=== PATIENT | male | born 1945 | race Caucasian/White ===

== ENCOUNTER → 2018-10-16 14:45 | Outpatient (CLI) | payer MEDICARE, OTHER, SELFPAY ==
[2018-10-16 15:45] LABS: PSA,Total - Annual Screen 3.19 ng/mL (0.00-4.00)
== END ==
PROVIDERS: Family Provider Family Medicine; PCP Family Medicine; Referring Provider Urology; Visit Provider Urology
DX: Z12.5 Encounter for screening for malignant neoplasm of prostate (principal)
CPT/HCPCS: 36415; 84153; G0103

== ENCOUNTER → 2019-01-09 14:03 | Outpatient (CLI) | payer MEDICARE, OTHER, SELFPAY ==
[2019-01-09 14:08] LABS: Bacteria 0 SEEN /hpf (None Seen); Mucous, Urine 0 SEEN /hpf (<or=2+); Red Blood Cells-Urine 0 SEEN /hpf (0-5); Squamous Epithelial Cells - UA 0 SEEN /hpf (0-5)
[2019-01-09 15:30] LABS: Color, Urine Yellow (Yellow); Glucose, Dipstick Normal (Normal); Ketone-Dipstick Negative (Negative); Leukocyte Esterase-Dipstick 25 /ul (Negative); Nitrite-Dipstick Negative (Negative); Occult Blood-Urine Negative /ul (Negative); Protein-Dipstick Negative (Negative); Specific Gravity, Urine 1.015 (1.002-1.030); Urine Bilirubin Dipstick Negative (Negative); Urine Clarity Clear (Clear); Urine Urobilinogen Normal (Normal); Urine pH 6.5 (5.0 - 8.0)
[2019-01-09 15:36] LABS: White Blood Cells 0-5 SEEN /hpf (0-5)
[2019-01-09 15:43] LABS: Hemoglobin A1c 6.1 % (4.2-6.3)
[2019-01-09 15:48] LABS: AST(SGOT) 18 U/L (15-37); Alanine Aminotransfer ALT/SGPT 35 U/L (16-61); Albumin, Serum 3.9 g/dL (3.2-5.0); Alkaline Phosphatase 101 U/L (45-117); Anion Gap 12 (5-15); BUN 24 mg/dL (7-18); BUN/Creat Ratio 20.9 RATIO (10-20); Chloride 101 mmol/L (98-107); Cholesterol 157 mg/dL (200); Creatinine, Serum 1.15 mg/dL (0.70-1.30); EST Glomerular Filtration Rate 66 mL/min (>60); Est Glom Filt Rate - Afr Amer 80 mL/min (>60); Globulin 3.8 g/dL (2.2-4.2); Glucose 97 mg/dL (74-106); High Density Lipoprotein 49 mg/dL; Potassium 3.9 mmol/L (3.5-5.1); Protein, Total 7.7 g/dL (6.4-8.2); Sodium Level 140 mmol/L (136-145); T4 Free Direct 1.12 ng/dL (0.76-1.46); Thyroid Stim Hormone (TSH) 0.59 uIU/mL (0.358-3.74); Triglycerides 135 mg/dL; Very Low Density Lipoprotein 27 mg/dL (5-40)
[2019-01-10 04:12] LABS: Absolute Lymphocyte Count 1.49 X10^3/ul (0.83-4.51); Absolute Neutrophil Count 5.7 X10^3/uL (2.0-7.7); Basophil# 0.02 X10^3/uL; Basophil% 0.3 % (0-1); Eosinophils% 1.3 % (0-5); Hematocrit 49.4 % (40-54); Hemoglobin 16.2 g/dl (13.0-16.5); Lymphocyte # 1.49 X10^3/ul (4.0); Lymphocyte % 18.7 % (19-41); Mean Corp Hgb Conc 32.8 g/gl (32-36); Mean Corpuscular Hgb 28.8 pg (27.0-32.0); Mean Corpuscular Volume 87.7 fL (80-94); Monocyte# 0.69 X10^3/uL; Monocyte% 8.7 % (0-10); Neutrophil # 5.65 X10^3/uL (2.7-7.7); Neutrophil % 70.7 % (47-70); POSITIVE COUNT NO; POSITIVE DIFFERENTIAL NO; POSITIVE MORPHOLOGY NO; Platelet Count 258 K/mm3 (150-450); RBC Distribution Width CV 13.5 % (11.6-14.6); RBC Distribution Width SD 43.1 fl (35.1-43.9); Red Blood Count 5.63 M/mm3 (4.6-6.2)
== END ==
PROVIDERS: Family Provider Family Medicine; PCP Family Medicine; Referring Provider Family Medicine; Visit Provider Family Medicine
DX: E04.1 Nontoxic single thyroid nodule (principal); I10 Essential (primary) hypertension; R73.02 Impaired glucose tolerance (oral); E78.5 Hyperlipidemia, unspecified
CPT/HCPCS: 36415; 80053; 80061; 81001; 83036; 84439; 84443; 85025

== ENCOUNTER → 2019-01-15 08:08 | Outpatient (CLI) | payer MEDICARE, OTHER, SELFPAY ==
--- NOTE | 2019-01-15 08:14 | US_ITS ---
STUDY: THYROID ULTRASOUND REASON FOR EXAM: Male, 73 years old. Nodule felt by physician TECHNIQUE: Ultrasound evaluation of the thyroid was performed with real-time and static baldwin-scale imaging. COMPARISON: None. FINDINGS: RIGHT LOBE: The right lobe of the thyroid gland measures 4.9 x 2.7 x 2.2 cm. There is a there are 2 solid nodules measuring 1.2 x 1.1 x 0.5 cm and 1.0 x 1.0 x 0.5 centimeters, and 2 solid/cystic nodules measuring 0.8 x 0.8 x 0.57 m and 1.1 x 1.4 x 0.9 cm. LEFT LOBE: The left lobe of the thyroid gland measures 6.5 x 3.0 x 3.6 cm. There is a homogeneous echotexture. Multiple solid/cystic nodules measuring between 1.9 and 2.3 cm. ISTHMUS: The isthmus measures 5 millimeters. There is a solid isthmus nodule measuring 1.4 x 1.0 x 0.8 cm. The regional lymph nodes are normal. US/Thyroid IMPRESSION: Enlarged left lobe of the thyroid gland. Bilateral solid and solid/cystic nodules. No previous studies are available for comparison, further evaluation with thyroid uptake study recommended to assess uptake characteristics. If the nodules should demonstrate suspicious uptake characteristics, biopsy would be recommended. If not, six-month follow-up would be recommended to assure stability of the nodules. Electronically Signed: Satya Mccormack MD at 17:25 EDT , Service support ,
== END ==
PROVIDERS: Family Provider Family Medicine; PCP Family Medicine; Referring Provider Family Medicine; Visit Provider Family Medicine
DX: E04.1 Nontoxic single thyroid nodule (principal)
CPT/HCPCS: 76536

== ENCOUNTER → 2019-02-07 11:33 | Outpatient (CLI) | payer MEDICARE, OTHER, SELFPAY ==
--- NOTE | 2019-02-07 08:15 | ASPS_PTH ---
PATIENT: SARAI VALE LOC: [facility] U#:[id number] AGE/SX: 80/M ROOM: RE02/07/[address]: Dr. Te Cope MD : 1945 BED: DIS: SPEC #: [id number] RECD: 02/07/19 11:24 STATUS: LADI JEFF #: [id number] MYLES: 02/07/19 08:[address]: Te Cope DEPT: CYTOLOGY RECD BY: Reed Gomez ENTERED: 02/07/19 12:55 SP TYPE: ASPIRATION OTHR DR: Dr. Ramiro Adams MD Tissues: A - Thyroid gland, NOS B - Thyroid gland, NOS C - Thyroid gland, NOS Procedures: Special Stain Group II Cytology Other HEADER OPERATION: Bilateral thyroid FNA PRE-OP DIAGNOSIS: Bilateral thyroid nodules TISSUE SUBMITTED: A - Right thyroid slides x6, B - Left inferior thyroid slides x4, C - Left superior thyroid slides x4 DIAGNOSIS CYTOLOGY A. Right thyroid nodule, FNA (smears): Consistent with benign follicular nodule with cystic changes. Adequate for evaluation. B. Left inferior thyroid nodule, FNA (smears): Consistent with benign colloid nodule with cystic changes. Adequate for evaluation. C. Left superior thyroid nodule, FNA (smears): Suggestive of benign cystic follicular nodule. The specimen is limited in evaluation due to lack of adequate number of follicular cells. SJ:pool 02/08/19 COMMENT Correlation with clinical, radiologic findings and appropriate follow up are necessary. CYTOLOGY STUDY Slides are reviewed. CYTOLOGY GROSS A - Received are six smears labeled with the patient's name and designated per the requisition as right thyroid. Submitted for staining. B - Received are four smears labeled with the patient's name and designated per the requisition as left inferior thyroid. Submitted for staining. C - Received are four smears labeled with the patient's name and designated per the requisition as left superior thyroid. Submitted for staining. / 02/07/19 TC:5 CPT: 61483 x3
[2019-02-07 08:46] VITALS: BMI 41.8
== END ==
PROVIDERS: Family Provider Family Medicine; PCP Family Medicine; Referring Provider Surgery; Visit Provider Surgery
DX: E04.1 Nontoxic single thyroid nodule (principal)
CPT/HCPCS: 88161; 88313

== ENCOUNTER → 2019-07-04 | Outpatient (CLI) | payer MEDICARE, OTHER, SELFPAY ==
[2019-02-07 08:46] VITALS: BMI 41.8
[2019-07-04 14:11] LABS: Absolute Lymphocyte Count 1.25 X10^3/uL (0.83-4.51); Basophil# 0.03 X10^3/uL; Basophil% 0.5 % (0-1); Eosinophil# 0.06 X10^3/uL; Hematocrit 49.3 % (40-54); Hemoglobin 16.3 g/dL (13.0-16.5); Lymphocyte # 1.25 X10^3/ul (4.0); Lymphocyte % 21.3 % (19-41); Mean Corp Hgb Conc 33.1 g/dL (32-36); Mean Corpuscular Hgb 28.3 pg (27.0-32.0); Mean Corpuscular Volume 85.6 fL (80-94); Mean Platelet Vol. 9.4 fl (6.2-12.0); Monocyte# 0.49 X10^3/uL; Monocyte% 8.3 % (0-10); NRBC Flagged by Analyzer 0 % (0-5); Neutrophil # 4.02 X10^3/uL (2.7-7.7); Neutrophil % 68.6 % (47-70); Platelet Count 245 K/mm3 (150-450); RBC Distribution Width CV 13.2 % (11.6-14.6); Red Blood Count 5.76 M/mm3 (4.6-6.2); White Blood Count 5.9 K/mm3 (4.4-11.0)
[2019-07-04 14:29] LABS: Vitamin B12 474 pg/mL (211-911); Vitamin D,25 Hydroxy 19.2 ng/mL (29.95-100.01)
[2019-07-04 14:30] LABS: Hemoglobin A1c 6.3 % (4.2-6.3)
[2019-07-04 14:37] LABS: ALB/GLOB Ratio 0.9 RATIO (0.9-2.4); AST(SGOT) 18 U/L (15-37); Alanine Aminotransfer ALT/SGPT 37 U/L (16-61); Albumin, Serum 3.7 g/dL (3.2-5.0); Alkaline Phosphatase 110 U/L (45-117); Anion Gap 6 (5-15); BUN 22 mg/dL (7-18); BUN/Creat Ratio 19.8 RATIO (10-20); Calcium,Total 9.3 mg/dL (8.5-10.1); Chloride 104 mmol/L (98-107); Cholesterol 175 mg/dL (200); Creatinine, Serum 1.11 mg/dL (0.70-1.30); EST Glomerular Filtration Rate 69 mL/min (>60); Est Glom Filt Rate - Afr Amer 83 mL/min (>60); Globulin 3.9 g/dL (2.2-4.2); Glucose 104 mg/dL (74-106); High Density Lipoprotein 52 mg/dL; Potassium 3.7 mmol/L (3.5-5.1); Protein, Total 7.6 g/dL (6.4-8.2); Sodium Level 140 mmol/L (136-145); Triglycerides 101 mg/dL; Very Low Density Lipoprotein 20 mg/dL (5-40)
[2019-07-06 20:07] LABS: Testosterone, Free 8.11 ng/dL (5.00-21.00)
[2019-07-07 09:28] LABS: Testosterone, % Free 2.94 % (1.50-4.20); Testosterone, Total 276 ng/dL (264-916)
== END | disposition home or self-care (01) ==
PROVIDERS: Family Provider Family Medicine; PCP Family Medicine; Referring Provider Family Medicine; Visit Provider Family Medicine
DX: E78.5 Hyperlipidemia, unspecified (principal); R53.83 Other fatigue; R73.02 Impaired glucose tolerance (oral); I10 Essential (primary) hypertension
CPT/HCPCS: 36415; 80053; 80061; 82306; 82607; 83036; 84402; 84403; 85025

== ENCOUNTER → 2019-10-11 11:01 | Outpatient (CLI) | payer MEDICARE, OTHER, SELFPAY ==
[2019-02-07 08:46] VITALS: BMI 41.8
[2019-10-11 12:19] LABS: Absolute Lymphocyte Count 1.29 X10^3/uL (0.83-4.51); Absolute Neutrophil Count 4.3 X10^3/uL (2.0-7.7); Basophil# 0.02 X10^3/uL; Basophil% 0.3 % (0-1); Eosinophil# 0.16 X10^3/uL; Eosinophils% 2.5 % (0-5); Hematocrit 49.8 % (40-54); Hemoglobin 16.2 g/dL (13.0-16.5); Lymphocyte # 1.29 X10^3/ul (4.0); Lymphocyte % 20.4 % (19-41); Mean Corp Hgb Conc 32.5 g/dL (32-36); Mean Corpuscular Hgb 28.4 pg (27.0-32.0); Mean Corpuscular Volume 87.2 fL (80-94); Mean Platelet Vol. 9.5 fl (6.2-12.0); Monocyte# 0.56 X10^3/uL; Monocyte% 8.8 % (0-10); NRBC Flagged by Analyzer 0 % (0-5); Neutrophil # 4.27 X10^3/uL (2.7-7.7); Neutrophil % 67.5 % (47-70); Platelet Count 256 K/mm3 (150-450); RBC Distribution Width CV 13.1 % (11.6-14.6); RBC Distribution Width SD 41.1 fl (35.1-43.9); Red Blood Count 5.71 M/mm3 (4.6-6.2); White Blood Count 6.3 K/mm3 (4.4-11.0)
[2019-10-11 12:39] LABS: Hemoglobin A1c 6.2 % (4.2-6.3)
[2019-10-11 12:41] LABS: ALB/GLOB Ratio 1.3 RATIO (0.9-2.4); AST(SGOT) 19 U/L (15-37); Alanine Aminotransfer ALT/SGPT 39 U/L (16-61); Albumin, Serum 3.9 g/dL (3.2-5.0); Alkaline Phosphatase 98 U/L (45-117); Anion Gap 6 (5-15); BUN 23 mg/dL (7-18); BUN/Creat Ratio 22.3 RATIO (10-20); Calcium,Total 9.1 mg/dL (8.5-10.1); Chloride 103 mmol/L (98-107); Cholesterol 172 mg/dL (200); Creatinine, Serum 1.03 mg/dL (0.70-1.30); EST Glomerular Filtration Rate 75 mL/min (>60); Est Glom Filt Rate - Afr Amer 90 mL/min (>60); Globulin 2.9 g/dL (2.2-4.2); Glucose 107 mg/dL (74-106); High Density Lipoprotein 49 mg/dL; Protein, Total 6.8 g/dL (6.4-8.2); Sodium Level 140 mmol/L (136-145); Triglycerides 122 mg/dL; Very Low Density Lipoprotein 24 mg/dL (5-40)
== END ==
PROVIDERS: Family Provider Family Medicine; PCP Family Medicine; Referring Provider Family Medicine; Visit Provider Family Medicine
DX: E78.5 Hyperlipidemia, unspecified (principal); E55.9 Vitamin D deficiency, unspecified; I10 Essential (primary) hypertension; R73.02 Impaired glucose tolerance (oral)
CPT/HCPCS: 36415; 80053; 80061; 82306; 83036; 85025

== ENCOUNTER → 2019-10-18 11:03 | Outpatient (CLI) | payer MEDICARE, OTHER, SELFPAY ==
[2019-02-07 08:46] VITALS: BMI 41.8
[2019-10-21 03:06] LABS: Beef <0.10 kU/L (Class 0); Corn <0.10 kU/L (Class 0); Egg, Whole <0.10 kU/L (Class 0); Milk (Cow) <0.10 kU/L (Class 0); Peanut <0.10 kU/L (Class 0); Pork <0.10 kU/L (Class 0); Soybean <0.10 kU/L (Class 0); Wheat <0.10 kU/L (Class 0)
[2019-10-21 11:34] LABS: Chocolate <0.10 kU/L (Class 0)
== END ==
PROVIDERS: Family Provider Family Medicine; PCP Family Medicine; Referring Provider Family Medicine; Visit Provider Family Medicine
DX: R19.7 Diarrhea, unspecified (principal)
CPT/HCPCS: 36415; 86003; 86005

== ENCOUNTER → 2020-01-01 | Outpatient (CLI) | payer MEDICARE, OTHER, SELFPAY ==
[2019-02-07 08:46] VITALS: BMI 41.8
--- NOTE | 2020-01-01 12:22 | RAD_ITS ---
STUDY: X-RAY CHEST REASON FOR EXAM: Male, 74 years old. cough, sob, bronchitis TECHNIQUE: PA and lateral views of the chest. COMPARISON: None. FINDINGS: The lungs are clear and expanded. There is no demonstrated pleural abnormality. Normal size heart. Normal mediastinum and edson. Normal visualized pulmonary arteries. There is atherosclerotic calcification of the aortic arch with tortuosity. There are diffuse degenerative changes of the visualized thoracic spine. Normal visualized ribs, clavicles, and shoulders. There is no demonstrated abnormality of the visualized soft tissue structures of the upper abdomen. RAD/Chest PA and Lateral IMPRESSION: No acute cardiopulmonary disease. Electronically Signed: Latisha Childs MD at 3:27 EST , Service support ,
== END | disposition home or self-care (01) ==
LOC: MTRAD 12:16
PROVIDERS: PCP Family Medicine; Referring Provider Family Medicine; Visit Provider Family Medicine
DX: J20.9 Acute bronchitis, unspecified (principal)
CPT/HCPCS: 71046

== ENCOUNTER → 2020-01-08 | Outpatient (CLI) | payer MEDICARE, OTHER, SELFPAY ==
[2019-02-07 08:46] VITALS: BMI 41.8
--- NOTE | 2020-01-08 09:13 | US_ITS ---
STUDY: THYROID ULTRASOUND REASON FOR EXAM: Male, 74 years old. F/U NODULES TECHNIQUE: Ultrasound evaluation of the thyroid was performed with real-time and static baldwin-scale imaging. COMPARISON: 01/15/2019 FINDINGS: RIGHT LOBE: The right lobe of the thyroid gland measures 4.9 x 2.3 x 2.4 cm. There is a heterogeneous echotexture. There is no change in the 11 mm solid and cystic nodule medially near the isthmus likely consistent with an adenoma. No change in a 9 mm solid and cystic nodule medially in the right lobe also likely consistent with an adenoma. LEFT LOBE: The left lobe of the thyroid gland measures 5.3 x 2.3 x 3.5 cm. There is a heterogeneous echotexture. No change in a 20 mm hypoechoic solid nodule with calcifications in the left lobe for which ultrasound-guided biopsy is recommended if never performed. Interval decrease in the size of the hypoechoic solid nodule laterally in the left lobe from 16 mm in diameter to 12 mm in diameter favoring a benign etiology. No change in a 20 mm colloid cyst posteriorly in the left lobe. ISTHMUS: The isthmus measures 7 mm thick. No change in a 10 mm hypoechoic solid nodule within the isthmus likely consistent with an adenoma.. The regional lymph nodes are normal. US/Thyroid IMPRESSION: Multinodular thyroid gland with mostly no change. Follow-up ultrasound is recommended in one year to document stability. Ultrasound-guided biopsy of the 20 mm dominant nodule in the left lobe with calcifications is recommended if never performed. Electronically Signed: Jhonnie Gabriel MD at 8:48 EST Tel , Service support ,
== END | disposition home or self-care (01) ==
LOC: US 09:13
PROVIDERS: PCP Family Medicine; Referring Provider Surgery; Visit Provider Surgery
DX: E04.2 Nontoxic multinodular goiter (principal)
CPT/HCPCS: 76536

== ENCOUNTER → 2020-03-19 | Outpatient (CLI) | payer MEDICARE, OTHER, SELFPAY ==
[2020-03-19 12:56] VITALS: BMI 41.8
--- NOTE | 2020-03-19 13:00 | ASPS_PTH ---
PATIENT: SARAI VALE LOC: [facility] U#:[id number] AGE/SX: 75/M ROOM: RE03/19/[address]: Dr. Jameel Cope III, MD : 1945 BED: DIS: 03/19/2020 SPEC #: [id number] RECD: 03/19/20 15:12 STATUS: LADI JEFF #: [id number] MYLES: 03/19/20 13:[address]: Te Cope DEPT: CYTOLOGY RECD BY: Jolanta Batres ENTERED: 03/20/20 08:33 SP TYPE: ASPIRATION OTHR DR: MD Dr. Ramiro Campbell III, MD Tissues: Thyroid gland, NOS Procedures: Special Stain Group II Cytology Other HEADER OPERATION: Left thyroid FNA PRE-OP DIAGNOSIS: Multiple thyroid nodules TISSUE SUBMITTED: Left thyroid slides x8 DIAGNOSIS CYTOLOGY Left thyroid nodule, FNA (smears): Consistent with benign colloid nodule. Adequate for evaluation. See comment. SJ:pool 03/21/20 COMMENT Correlation with clinical, radiologic findings and appropriate follow up are necessary. Please make reference to previous specimen ([id number]) right thyroid nodule, FNA with diagnosis of consistent with benign follicular nodule with cystic changes and left inferior thyroid nodule, FNA with diagnosis of consistent with benign colloid nodule with cystic changes and left superior thyroid nodule with diagnosis of suggestive of benign cystic follicular nodule. CYTOLOGY STUDY Slides are reviewed. CYTOLOGY GROSS Received are eight smears labeled with the patient's name and designated per the requisition as left thyroid. Submitted for staining. / pool 03/20/20 TC:5 CPT: 54277
== END | disposition home or self-care (01) ==
LOC: LABSPEC 15:27
PROVIDERS: PCP Family Medicine; Referring Provider Family Medicine; Visit Provider Family Medicine
DX: E04.2 Nontoxic multinodular goiter (principal)
CPT/HCPCS: 88161; 88313

== ENCOUNTER → 2020-04-15 | Outpatient (CLI) | payer MEDICARE, OTHER, SELFPAY ==
[2020-03-19 12:56] VITALS: BMI 41.8
[2020-04-15 12:41] LABS: Vitamin D,25 Hydroxy 30.4 ng/mL
[2020-04-15 12:49] LABS: ALB/GLOB Ratio 1.1 RATIO (0.9-2.4); AST(SGOT) 16 U/L (15-37); Alanine Aminotransfer ALT/SGPT 29 U/L (16-61); Albumin, Serum 3.6 g/dL (3.2-5.0); Alkaline Phosphatase 94 U/L (45-117); Anion Gap 6 (5-15); BUN 28 mg/dL (7-18); BUN/Creat Ratio 26.7 RATIO (10-20); Chloride 105 mmol/L (98-107); Cholesterol 159 mg/dL (200); Creatinine, Serum 1.05 mg/dL (0.70-1.30); EST Glomerular Filtration Rate 73 mL/min (>60); Est Glom Filt Rate - Afr Amer 88 mL/min (>60); Globulin 3.4 g/dL (2.2-4.2); Glucose 118 mg/dL (74-106); High Density Lipoprotein 47 mg/dL; Potassium 3.8 mmol/L (3.5-5.1); Sodium Level 139 mmol/L (136-145); Triglycerides 106 mg/dL; Very Low Density Lipoprotein 21 mg/dL (5-40)
[2020-04-15 13:21] LABS: Hemoglobin A1c 6.4 % (3.8-5.6)
[2020-04-17 12:07] LABS: Beef <0.10 kU/L (Class 0); Corn <0.10 kU/L (Class 0); Egg, Whole <0.10 kU/L (Class 0); Milk (Cow) <0.10 kU/L (Class 0); Peanut <0.10 kU/L (Class 0); Pork <0.10 kU/L (Class 0); Soybean <0.10 kU/L (Class 0); Wheat <0.10 kU/L (Class 0)
[2020-04-17 15:31] LABS: Chocolate <0.10 kU/L (Class 0)
== END | disposition home or self-care (01) ==
LOC: MFPLAB 10:07
PROVIDERS: PCP Family Medicine; Referring Provider Family Medicine; Visit Provider Family Medicine
DX: I10 Essential (primary) hypertension (principal); R19.7 Diarrhea, unspecified; E78.5 Hyperlipidemia, unspecified; R73.02 Impaired glucose tolerance (oral); E55.9 Vitamin D deficiency, unspecified
CPT/HCPCS: 36415; 80053; 80061; 82306; 83036; 86003; 86005

== ENCOUNTER → 2020-04-30 | Outpatient (CLI) | payer MEDICARE, OTHER, SELFPAY ==
[2020-03-19 12:56] VITALS: BMI 41.8
--- NOTE | 2020-04-30 11:41 | RAD_ITS ---
STUDY: X-RAY - RIGHT ANKLE REASON FOR EXAM: Male, 75 years old. Right ankle pain, several falls-most recent a few days ago TECHNIQUE: 3 view(s) of the ankle. COMPARISON: None. FINDINGS: The bones are demineralized. Normal visualized distal tibia. There is an old ununited fracture of the distal fibula. The ankle mortise is well-preserved. Normal medial and lateral malleoli. Normal tibiotalar articulation and ankle mortise. Normal visualized talus. Calcaneal spurs. The visualized subtalar, talonavicular, calcaneocuboid and tarsal articulations are normal. 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
== END | disposition home or self-care (01) ==
LOC: MTRAD 11:40
PROVIDERS: PCP Family Medicine; Referring Provider Family Medicine; Visit Provider Family Medicine
DX: S93.401A Sprain of unspecified ligament of right ankle, initial encounter (principal)
CPT/HCPCS: 73610

== ENCOUNTER → 2020-07-16 | Outpatient (CLI) | payer MEDICARE, OTHER, SELFPAY ==
[2020-03-19 12:56] VITALS: BMI 41.8
[2020-07-16 13:32] LABS: Bacteria 0 SEEN /hpf (None Seen); Mucous, Urine 0 SEEN /hpf (<or=2+); Red Blood Cells-Urine 0 SEEN /hpf (0-5); Squamous Epithelial Cells - UA 0 SEEN /hpf (0-5); White Blood Cells 0 SEEN /hpf (0-5)
[2020-07-16 15:20] LABS: Absolute Lymphocyte Count 1.16 X10^3/uL (0.83-4.51); Absolute Neutrophil Count 5.8 X10^3/uL (2.0-7.7); Basophil# 0.03 X10^3/uL; Basophil% 0.4 % (0-1); Eosinophil# 0.13 X10^3/uL; Eosinophils% 1.7 % (0-5); Hematocrit 47.7 % (40-54); Hemoglobin 15.2 g/dL (13.0-16.5); Lymphocyte # 1.16 X10^3/ul (4.0); Lymphocyte % 14.9 % (19-41); Mean Corp Hgb Conc 31.9 g/dL (32-36); Mean Corpuscular Hgb 27.7 pg (27.0-32.0); Mean Corpuscular Volume 86.9 fL (80-94); Mean Platelet Vol. 9.5 fl (6.2-12.0); Monocyte# 0.58 X10^3/uL; Monocyte% 7.5 % (0-10); NRBC Flagged by Analyzer 0 % (0-5); Neutrophil # 5.84 X10^3/uL (2.7-7.7); Platelet Count 302 K/mm3 (150-450); RBC Distribution Width CV 13.1 % (11.6-14.6); RBC Distribution Width SD 41.2 fl (35.1-43.9); Red Blood Count 5.49 M/mm3 (4.6-6.2); White Blood Count 7.8 K/mm3 (4.4-11.0)
[2020-07-16 15:20] LABS: Color, Urine Yellow (Yellow); Glucose, Dipstick Normal (Normal); Ketone-Dipstick Negative (Negative); Leukocyte Esterase-Dipstick 25 /ul (Negative); Nitrite-Dipstick Negative (Negative); Occult Blood-Urine Negative /ul (Negative); Protein-Dipstick 15 mg/dl (Negative); Urine Bilirubin Dipstick Negative (Negative); Urine Clarity Clear (Clear); Urine Urobilinogen Normal (Normal)
[2020-07-16 15:37] LABS: Vitamin D,25 Hydroxy 40.6 ng/mL
[2020-07-16 15:42] LABS: ALB/GLOB Ratio 0.9 RATIO (0.9-2.4); AST(SGOT) 20 U/L (15-37); Alanine Aminotransfer ALT/SGPT 39 U/L (16-61); Albumin, Serum 3.7 g/dL (3.2-5.0); Alkaline Phosphatase 112 U/L (45-117); Anion Gap 8 (5-15); BUN 20 mg/dL (7-18); Calcium,Total 9.1 mg/dL (8.5-10.1); Chloride 103 mmol/L (98-107); Cholesterol 178 mg/dL (200); Creatinine, Serum 1.05 mg/dL (0.70-1.30); EST Glomerular Filtration Rate 73 mL/min (>60); Est Glom Filt Rate - Afr Amer 88 mL/min (>60); Globulin 3.9 g/dL (2.2-4.2); Glucose 113 mg/dL (74-106); High Density Lipoprotein 49 mg/dL; PSA,Total - Annual Screen 2.92 ng/mL (0.00-4.00); Potassium 3.9 mmol/L (3.5-5.1); Protein, Total 7.6 g/dL (6.4-8.2); Sodium Level 140 mmol/L (136-145); Triglycerides 114 mg/dL; Very Low Density Lipoprotein 23 mg/dL (5-40)
[2020-07-16 15:45] LABS: Hemoglobin A1c 6.5 % (3.8-5.6)
== END | disposition home or self-care (01) ==
LOC: MTLAB 13:25
PROVIDERS: PCP Family Medicine; Referring Provider Family Medicine; Visit Provider Family Medicine
DX: I10 Essential (primary) hypertension (principal); E78.5 Hyperlipidemia, unspecified; R73.02 Impaired glucose tolerance (oral); E55.9 Vitamin D deficiency, unspecified; Z12.5 Encounter for screening for malignant neoplasm of prostate
CPT/HCPCS: 36415; 80053; 80061; 81001; 82306; 83036; 84153; 85025; G0103

== ENCOUNTER 2020-07-27 12:53 | Emergency (ER) | payer MEDICARE, OTHER, SELFPAY ==
[2020-03-19 12:56] VITALS: BMI 41.8
[2020-07-27 12:55] VITALS: BP 127/76; PULSE 97; RESP 18; TEMP 36.3; O2SAT 96; BMI 93.4
--- NOTE | 2020-07-27 13:14 | EKG12_ITS ---
Test Reason : GEN ILLNESS Blood Pressure : / mmHG Vent. Rate : 086 BPM Atrial Rate : 086 BPM P-R Int : 238 ms QRS Dur : 090 ms QT Int : 370 ms P-R-T Axes : 056 006 064 degrees QTc Int : 442 ms Sinus rhythm with 1st degree A-V block Inferior infarct , age undetermined Abnormal ECG Confirmed by RAMAN LÓPEZ, OFE ([id number]), editorial intern GENEVIEVE LOCKETT ([id number]) on 07/29/2020 1:24:00 PM Referred By: MICHAEL Confirmed By:OFE CAMARGO MD
--- NOTE | 2020-07-27 13:14 | ED.DCSUM_ITS ---
History of Present Illness Chief Complaint: General Illness Informant: Patient Narrative: 75-year-old male presenting with chief complaint of medication reaction to a Ozempic. He started this last week. This morning he had multiple symptoms including anxiety and a cough which lasted a long time. He then stated he felt constipated. His gave him a fleets enema and this resolved his constipation issue. He did not check his blood sugar at home. Patient states he is not had a reaction like this before. He states that his symptoms have since improved prior to arrival to the ER. He denies chest pain but states he felt like he was short of breath and coughing. He has had no fever, myalgias. - Past Medical History (1) Multiple thyroid nodules Status: Chronic Past Medical History - Allergies and Home Meds Allergies/Adverse Reactions: Allergies Iodinated Contrast Media [Iodinated Contrast- Oral and IV Dye] Allergy (Mild, Verified 07/27/20 12:55) Unknown Penicillins Allergy (Mild, Verified 07/27/20 12:55) Rash Primary Care Physician: Ramiro Adams MD [Primary Care Provider] - Past Medical History: - - Hyperlipidemia, hypertension Surgical History: noncontributory Lives: Spouse/ Significant Other Smoking Status: Never smoker Alcohol: None Drugs: None Review of Systems General: Denies: Chills, Fever, Sweats Eyes: Denies: Visual changes - bilaterally, Diplopia ENT: Denies: Rhinorrhea, Sore throat Cardiovascular: Reports: Palpitations, Heart racing. Denies: Chest pain Respiratory: Reports: Dyspnea, Cough Gastrointestinal: Reports: Abdominal pain, Nausea, Constipation. Denies: Vomit ing Musculoskeletal: Denies: Myalgias, Arthralgias Skin: Denies: Rash, Abscess Neurological: Denies: Headache, Weakness Psych: Reports: Anxiety. Denies: Suicidal thoughts, Suicidal ideations Physical Exam Vital Signs/Narrative: Vital Signs Temp Pulse Resp BP Pulse Ox 07/27/20 12:55 97.3 F L 97 18 127/76 H 96 Inital Vital Signs reviewed: Yes General: Well nourished, No Acute Distress Head: Normocephalic, Atraumatic Eyes: Perrl, EOMI. Negative for: Scleral icterus ENT: Moist mucous membranes, No rhinorrhea Cardiovascular: Regular rate, Regular rhythm Respiratory: No distress, CTA bilaterally Abdomen: Soft, Nontender, Nondistended Skin: Normal color, No rash. Negative for: Jaundice Neurological: Alert, Oriented x3 Psychological: Normal affect, Normal Mood Diagnostic/Tx/Re-eval Clinical Impression(s) from Imaging Studies Chest X-Ray 07/27/20 13:36 IMPRESSION: Stable, nonacute portable x-ray examination of the chest. Electronically Signed: Blair Villanueva MD (Brooks) at 13:49 EDT , Service support , Laboratory Data 07/27/20 07/27/20 13:30 13:30 WBC 9.2 RBC 5.38 Hgb 15.3 Hct 46.4 MCV 86.2 MCH 28.4 MCHC 33.0 RDW Std Deviation 40.8 RDW Coeff of Jennifer 13.2 Plt Count 285 MPV 9.5 Immature Gran % (Auto) 0.300 Neut % (Auto) 86.5 H Lymph % (Auto) 7.9 L Sevier % (Auto) 4.9 Eos % (Auto) 0.2 Baso % (Auto) 0.2 Absolute Neuts (auto) 8.0 H Absolute Lymphs (auto) 0.73 L Nucleated RBC % 0 Sodium 137 Potassium 4.1 Chloride 104 Carbon Dioxide 26.0 Anion Gap 7 BUN 27 H Creatinine 1.42 H Estim Creat Clear Calc 47.14 Est GFR (MDRD) Af Amer 62 Est GFR (MDRD) Non-Af 52 L BUN/Creatinine Ratio 19.0 Glucose 131 H Calcium 9.0 Total Bilirubin 0.40 AST 15 ALT 27 Alkaline Phosphatase 109 Troponin I < 0.015 Total Protein 7.3 Albumin 3.6 Globulin 3.7 Albumin/Globulin Ratio 1.0 Lipase 38 L - Rhythm Strip Rhythm Strip: Sinus Rhythm Rate: 86 - EKG Initial EKG Interpretation: Sinus Rhythm, No Acute Injury Pattern, AV Block - First Degree - Medical Decision Making Patient presents with concern for medication side effects. His vital signs are stable and he is afebrile. He is currently symptom-free. His constipation resolved after an enema. He is no longer having a cough or shortness of breath. I did check lab work which was fairly unremarkable with exception of some mild dehydration. Patient is counseled on how to hydrate at home I do not believe he needs IV fluids at this time. Chest x-ray is negative. EKG is sinus rhythm without signs of ischemia. Patient counseled to discontinue the use of his Ozempic until he can follow-up with his primary care provider regarding the symptoms. He is also to have his primary care physician recheck his kidney function on his next visit. Patient amenable to this plan and stable for discharge Impression: 1. Medication adverse effect 2. Dehydration ED Disposition - Plan for ED Patient: Disposition: Home or Assisted Living Instructions: ED Dehydration Adult, ED Drug React Adverse Other Referrals: Ramiro Adams MD [Primary Care Provider] -
--- NOTE | 2020-07-27 13:30 | ED.RN ---
NO OLD EKG
[2020-07-27 13:34] VITALS: BP 129/68; PULSE 85; RESP 20; O2SAT 16
--- NOTE | 2020-07-27 13:36 | RAD_ITS ---
STUDY: X-RAY CHEST REASON FOR EXAM: Male, 75 years old. sob TECHNIQUE: AP COMPARISON: 01/01/2020 FINDINGS: EKG leads project over the chest. The lungs are clear and expanded. There is no demonstrated pleural abnormality. Normal size heart. Normal mediastinum and edson. Normal visualized pulmonary arteries. Normal visualized aortic arch and descending thoracic aorta. No acute bony process. There is no demonstrated abnormality of the visualized soft tissue structures of the upper abdomen. RAD/Chest 1 View (Portable) IMPRESSION: Stable, nonacute portable x-ray examination of the chest. Electronically Signed: Blair Villanueva MD (Brooks) at 13:49 EDT , Service support ,
[2020-07-27 13:45] LABS: Absolute Lymphocyte Count 0.73 X10^3/uL (0.83-4.51); Basophil# 0.02 X10^3/uL; Basophil% 0.2 % (0-1); Eosinophil# 0.02 X10^3/uL; Eosinophils% 0.2 % (0-5); Hematocrit 46.4 % (40-54); Hemoglobin 15.3 g/dL (13.0-16.5); Lymphocyte # 0.73 X10^3/ul (4.0); Lymphocyte % 7.9 % (19-41); Mean Corpuscular Hgb 28.4 pg (27.0-32.0); Mean Corpuscular Volume 86.2 fL (80-94); Mean Platelet Vol. 9.5 fl (6.2-12.0); Monocyte# 0.45 X10^3/uL; Monocyte% 4.9 % (0-10); NRBC Flagged by Analyzer 0 % (0-5); Neutrophil # 7.97 X10^3/uL (2.7-7.7); Neutrophil % 86.5 % (47-70); Platelet Count 285 K/mm3 (150-450); RBC Distribution Width CV 13.2 % (11.6-14.6); RBC Distribution Width SD 40.8 fl (35.1-43.9); Red Blood Count 5.38 M/mm3 (4.6-6.2); White Blood Count 9.2 K/mm3 (4.4-11.0)
[2020-07-27 14:03] LABS: AST(SGOT) 15 U/L (15-37); Alanine Aminotransfer ALT/SGPT 27 U/L (16-61); Albumin, Serum 3.6 g/dL (3.2-5.0); Alkaline Phosphatase 109 U/L (45-117); Anion Gap 7 (5-15); BUN 27 mg/dL (7-18); Chloride 104 mmol/L (98-107); Creatinine, Serum 1.42 mg/dL (0.70-1.30); EST Glomerular Filtration Rate 52 mL/min (>60); Est Glom Filt Rate - Afr Amer 62 mL/min (>60); Estimated Creatinine Clearance 47.14 ml/min; Globulin 3.7 g/dL (2.2-4.2); Glucose 131 mg/dL (74-106); Lipase 38 U/L (73-393); Potassium 4.1 mmol/L (3.5-5.1); Protein, Total 7.3 g/dL (6.4-8.2); Sodium Level 137 mmol/L (136-145)
[2020-07-27 14:16] VITALS: BP 135/73; PULSE 85; RESP 20
== END 2020-07-27 14:33 | disposition home or self-care (01) ==
PROVIDERS: Emergency Provider Student in an Organized Health Care Education/Training Program; PCP Family Medicine
DX: E86.0 Dehydration (principal); F41.9 Anxiety disorder, unspecified; R05 Cough; T50.995A Adverse effect of other drugs, medicaments and biological substances, initial encounter; I10 Essential (primary) hypertension; E78.5 Hyperlipidemia, unspecified; Z79.899 Other long term (current) drug therapy
CPT/HCPCS: 71045; 80053; 83690; 84484; 85025; 93005; 99284; A4216

== ENCOUNTER → 2020-10-27 09:59 | Outpatient (CLI) | payer MEDICARE, OTHER, SELFPAY ==
[2020-10-27 12:31] LABS: Absolute Lymphocyte Count 1.39 X10^3/uL (0.83-4.51); Absolute Neutrophil Count 5.5 X10^3/uL (2.0-7.7); Basophil# 0.04 X10^3/uL; Basophil% 0.5 % (0-1); Eosinophil# 0.13 X10^3/uL; Eosinophils% 1.7 % (0-5); Hematocrit 50.4 % (40-54); Hemoglobin 16.9 g/dL (13.0-16.5); Lymphocyte # 1.39 X10^3/ul (4.0); Lymphocyte % 18.2 % (19-41); Mean Corp Hgb Conc 33.5 g/dL (32-36); Mean Corpuscular Hgb 29.2 pg (27.0-32.0); Mean Platelet Vol. 10.1 fl (6.2-12.0); Monocyte# 0.58 X10^3/uL; Monocyte% 7.6 % (0-10); NRBC Flagged by Analyzer 0 % (0-5); Neutrophil # 5.45 X10^3/uL (2.7-7.7); Neutrophil % 71.5 % (47-70); Platelet Count 266 K/mm3 (150-450); RBC Distribution Width CV 14.4 % (11.6-14.6); RBC Distribution Width SD 42.4 fl (35.1-43.9); Red Blood Count 5.79 M/mm3 (4.6-6.2); White Blood Count 7.6 K/mm3 (4.4-11.0)
[2020-10-27 12:54] LABS: Microalbumin,Random Urine 57.7 mg/L (NO RANGE EST.); Microalbumin:Creatinine Ratio 43.7 mg/g CRE (<30 mg/g CRE)
[2020-10-27 12:56] LABS: Vitamin D,25 Hydroxy 36.7 ng/mL
[2020-10-27 13:03] LABS: AST(SGOT) 20 U/L (15-37); Alanine Aminotransfer ALT/SGPT 42 U/L (16-61); Albumin, Serum 3.9 g/dL (3.2-5.0); Alkaline Phosphatase 123 U/L (45-117); Anion Gap 6 (5-15); BUN 21 mg/dL (7-18); BUN/Creat Ratio 19.4 RATIO (10-20); Calcium,Total 9.4 mg/dL (8.5-10.1); Chloride 102 mmol/L (98-107); Cholesterol 154 mg/dL (200); Creatinine, Serum 1.08 mg/dL (0.70-1.30); EST Glomerular Filtration Rate 71 mL/min (>60); Est Glom Filt Rate - Afr Amer 85 mL/min (>60); Glucose 112 mg/dL (74-106); High Density Lipoprotein 54 mg/dL; Potassium 3.7 mmol/L (3.5-5.1); Protein, Total 7.9 g/dL (6.4-8.2); Sodium Level 138 mmol/L (136-145); Triglycerides 95 mg/dL; Very Low Density Lipoprotein 19 mg/dL (5-40)
[2020-10-27 13:22] LABS: Hemoglobin A1c 6.2 % (3.8-5.6)
== END ==
PROVIDERS: PCP Family Medicine; Referring Provider Family Medicine; Visit Provider Family Medicine
DX: E11.9 Type 2 diabetes mellitus without complications (principal); E78.5 Hyperlipidemia, unspecified; E55.9 Vitamin D deficiency, unspecified; G47.33 Obstructive sleep apnea (adult) (pediatric)
CPT/HCPCS: 36415; 80053; 80061; 82043; 82306; 82570; 83036; 85025

== ENCOUNTER → 2021-01-14 05:46 | Outpatient (CLI) | payer MEDICARE, OTHER, SELFPAY ==
--- NOTE | 2021-01-15 14:37 | STRESSREP ---
Stress Test Report Date: 01/14/2021 Procedure: Exercise tolerance test/imaging study Indications: Chest pain Consent: Per the patient Procedure: The patient exercised on a Erik protocol for 3 minutes and 29 seconds achieving a peak heart rate of 127 bpm (88% predicted maximal heart rate) with a peak blood pressure 220/110 mmHg and a peak MET capacity of 5.1 METs. The baseline ECG demonstrated normal sinus rhythm. The peak exercise ECG demonstrated no significant ischemic changes. EKG during recovery revealed significant ischemic changes [There were no cardiac dysrhythmias pretest, during exercise, or recovery]. The functional capacity was considered normal for age. There was [no complaint of chest discomfort during exercise or recovery]. The examination was discontinued secondary to dyspnea. Impression: 1. Technically adequate (percent predicted maximal heart rate greater than 85%) exercise tolerance test 2. Stress test is negative for exercise-induced EKG changes of ischemia 3. The test test is negative for exercise-induced chest pain 4. Functional capacity is normal for age 5. Nuclear images pending Myocardial perfusion imaging study: Technique: The patient was injected with 14.1 mCi of technetium 99m Cardiolite and subsequently rest SPECT Cardiolite nuclear imaging was obtained in the horizontal long, vertical long, and short axis views. The patient exercised on a Erik protocol. Please see above for details. The patient was injected with 44.4 mCi of technetium 99m Cardiolite and subsequently stress SPECT Cardiolite nuclear imaging was obtained in the horizontal long, vertical long, and short axis views. A gated Cardiolite study at peak stress was obtained. Interpretation: Rest and stress SPECT Cardiolite nuclear imaging status post realignment, normalization, and attenuation correction, demonstrates normal myocardial radioisotope uptake after attenuation correction. Prior to attenuation correction there is mild decrease in the radioisotope uptake in the inferior wall suggestive of diaphragmatic attenuation artifact. The gated Cardiolite study demonstrates no significant regional wall motion abnormalities. The reported LVEF is 71%. Impression: 1. There is no evidence of significant ischemia or infarction. 2. The gated Cardiolite study reports an LVEF of 71%. This note was generated with [employer] software. It may contain incorrect words, spelling, and punctuation that were not noted in checking the note before signing.
== END ==
PROVIDERS: PCP Family Medicine; Referring Provider Family Medicine; Visit Provider Family Medicine
DX: R07.9 Chest pain, unspecified (principal)
CPT/HCPCS: 78452; 93017; A9500; A4216

== ENCOUNTER → 2021-08-12 10:06 | Outpatient (CLI) | payer MEDICARE, OTHER, SELFPAY ==
[2021-08-12 12:28] LABS: Absolute Neutrophil Count 4.3 X10^3/uL (2.0-7.7); Basophil# 0.03 X10^3/uL; Basophil% 0.5 % (0-1); Eosinophil# 0.14 X10^3/uL; Eosinophils% 2.4 % (0-5); Hematocrit 43.1 % (40-54); Hemoglobin 13.8 g/dL (13.0-16.5); Lymphocyte % 16.8 % (19-41); Mean Corpuscular Hgb 28.4 pg (27.0-32.0); Mean Corpuscular Volume 88.7 fL (80-94); Mean Platelet Vol. 9.6 fl (6.2-12.0); Monocyte# 0.48 X10^3/uL; Monocyte% 8.1 % (0-10); NRBC Flagged by Analyzer 0 % (0-5); Neutrophil # 4.25 X10^3/uL (2.7-7.7); Neutrophil % 71.5 % (47-70); Platelet Count 247 K/mm3 (150-450); RBC Distribution Width CV 13.9 % (11.6-14.6); RBC Distribution Width SD 44.9 fl (35.1-43.9); Red Blood Count 4.86 M/mm3 (4.6-6.2); White Blood Count 5.9 K/mm3 (4.4-11.0)
[2021-08-12 13:00] LABS: Vitamin D,25 Hydroxy 36.6 ng/mL
[2021-08-12 13:01] LABS: ALB/GLOB Ratio 0.8 RATIO (0.9-2.4); AST(SGOT) 14 U/L (15-37); Alanine Aminotransfer ALT/SGPT 26 U/L (16-61); Alkaline Phosphatase 90 U/L (45-117); Anion Gap 7 (5-15); BUN 24 mg/dL (7-18); BUN/Creat Ratio 24.1 RATIO (10-20); Calcium,Total 8.9 mg/dL (8.5-10.1); Chloride 104 mmol/L (98-107); Cholesterol 147 mg/dL (200); Creatinine, Serum 0.99 mg/dL (0.70-1.30); EST Glomerular Filtration Rate 77 mL/min (>60); Est Glom Filt Rate - Afr Amer 94 mL/min (>60); Globulin 3.7 g/dL (2.2-4.2); Glucose 144 mg/dL (74-106); High Density Lipoprotein 52 mg/dL; Potassium 3.9 mmol/L (3.5-5.1); Protein, Total 6.7 g/dL (6.4-8.2); Sodium Level 142 mmol/L (136-145); Thyroid Stim Hormone (TSH) 0.75 uIU/mL (0.358-3.74); Triglycerides 79 mg/dL; Very Low Density Lipoprotein 16 mg/dL (5-40)
[2021-08-12 13:14] LABS: Microalbumin,Random Urine 31.7 mg/L (NO RANGE EST.); Microalbumin:Creatinine Ratio 21.6 mg/g CRE (<30 mg/g CRE)
[2021-08-12 13:19] LABS: Hemoglobin A1c 6.7 % (3.8-5.6)
== END ==
PROVIDERS: PCP Family Medicine; Referring Provider Family Medicine; Visit Provider Family Medicine
DX: E11.9 Type 2 diabetes mellitus without complications (principal); E55.9 Vitamin D deficiency, unspecified
CPT/HCPCS: 36415; 80053; 80061; 82043; 82306; 82570; 83036; 84443; 85025

== ENCOUNTER 2021-08-16 10:20 | Emergency (ER) | payer MEDICARE, OTHER, SELFPAY ==
[2021-08-16 10:21] VITALS: BP 147/84; PULSE 65; RESP 15; TEMP 37.1; O2SAT 96; BMI 41.9
[2021-08-16 10:46] VITALS: BP 202/108; PULSE 79; RESP 20; O2SAT 96
--- NOTE | 2021-08-16 11:27 | CT_ITS ---
STUDY: CT BRAIN WITHOUT CONTRAST REASON FOR EXAM: Male, 76 years old. Headache RADIATION DOSAGE (If Supplied By Facility): CTDIvol = ( 44.99 ) mGy, DLP = ( 880.47 ) mGycm TECHNIQUE: Transaxial CT imaging of the brain was performed without administration of intravenous contrast material. Individualized dose optimization techniques were used for this CT. COMPARISON: No relevant priors. FINDINGS: Normal soft tissue structures. Normal calvarium. There is mild cerebral atrophy with widening of the extra-axial spaces and ventricular dilatation. There are areas of decreased attenuation within the white matter tracts of the supratentorial brain, consistent with microvascular disease changes. Normal basal ganglia and thalami. Normal brainstem. There is mild cerebellar atrophy. There is no intracranial hemorrhage. There are no findings of an acute ischemic infarction. Normal visualized paranasal sinuses. CT/Brain/Head without Contrast IMPRESSION: Chronic involutional changes of the brain. Small vessel ischemia. Electronically Signed: Janeth Dhaliwal MD at 13:17 EDT Tel , Service support ,
--- NOTE | 2021-08-16 11:27 | EKG12_ITS ---
Test Reason : Blood Pressure : / mmHG Vent. Rate : 065 BPM Atrial Rate : 065 BPM P-R Int : 212 ms QRS Dur : 090 ms QT Int : 422 ms P-R-T Axes : 027 022 057 degrees QTc Int : 438 ms Sinus rhythm with 1st degree A-V block Otherwise normal ECG Confirmed by RAMAN LÓPEZ, OFE ([id number]), medical editor CHANA SANDOVAL ([id number]) on 08/17/2021 1:01:52 PM Referred By: MICHAEL Confirmed By:OFE CAMARGO MD
--- NOTE | 2021-08-16 11:29 | EDS_ITS ---
HPI History of Present Illness Chief Complaint: General Illness Narrative Narrative: 76-year-old male presenting with elevated blood pressure. He states that he noted was elevated today. His blood pressure is 202/108 here in the ED. He complains of a headache without visual complaints. He is able to ambulate. He is mildly nauseous without vomiting. He does not describe it as acute onset headache. Patient does have history of hypertension and is on HCTZ 25 mg p.o. daily, losartan 100 mg p.o. daily in addition to that he is on propanolol for anxiety. His blood pressure has been good throughout the week. Patient recently hospitalized for COVID-19 about 22 days ago he was released and has been doing home PT. He notes that his blood pressure was good up until today. Patient does admit to some anxiety which she relates to an upcoming meeting which he believes will not go well. Patient has not had a fever or cough. He does admit to some mild chest pressure and states he has a syncope feeling. Patient denies any cardiac history. [facility] Medical History HTN (hypertension) Hyperlipidemia Multiple thyroid nodules Home Medications aspirin 81 mg tablet,delayed release 81 mg PO DAILY 01/22/19 [History Last Taken Unknown] atorvastatin 10 mg tablet 20 mg PO DAILY 01/22/19 [History Last Taken Unknown] hydrochlorothiazide 25 mg tablet 25 mg PO DAILY 01/22/19 [History Last Taken Unknown] losartan 100 mg tablet 100 mg PO DAILY 01/22/19 [History Last Taken Unknown] montelukast 10 mg PO DAILY 07/27/20 [History Last Taken Unknown] ropinirole 0.5 mg PO QHS 07/27/20 [History Last Taken Unknown] semaglutide 0.25 mg SQ QWEEK 07/27/20 [History Last Taken Unknown] sulfamethoxazole-trimethoprim 1 ea PO BID 07/27/20 [History Last Taken Unknown] Allergy/AdvReac Type Severity Reaction Status Date / Time Iodinated Contrast Media Allergy Mild Unknown Verified 08/16/21 10:21 [Iodinated Contrast- Oral and IV Dye] Penicillins Allergy Mild Rash Verified 08/16/21 10:21 Family History Mother Thyroid disorder Surgical History S/P knee surgery s/p prostate surgery S/P tonsillectomy Status post biopsy of thyroid gland (~01/2020) Social History Smoking Status: Never smoker alcohol intake: current alcohol intake frequency: holidays/special occasions only ROS ROS ED Constitutional Constitutional ED: Denies chills or fever(s) Eyes Eyes: Denies blurry vision or diplopia ENT ENT ED: Denies rhinorrhea or sore throat Cardiovascular Cardiovascular: Reports chest pain; Denies racing heartbeat Respiratory/Chest Respiratory/Chest: Denies cough or dyspnea Gastrointestinal Gastrointestinal: Reports nausea; Denies abdominal pain, diarrhea or vomiting Genitourinary Genitourinary ED: Denies dysuria or hematuria Musculoskeletal Musculoskeletal: Denies arthralgias or myalgias Integumentary Denies Abrasions or rash Neurologic Neurologic: Reports headache(s); Denies paresthesias or weakness EXAM Physical Exam Const Vital Signs: 08/16/21 10:21 08/16/21 10:46 08/16/21 11:52 Temperature 98.7 F Temperature Source Temporal Pulse Rate 65 79 Respiratory Rate 15 20 H Respiratory Effort Normal Respiratory Pattern Normal Blood Pressure 147/84 H 202/108 H Blood Pressure Mean 105 139 Pulse Ox 96 96 Oxygen Delivery Method Room Air Room Air Room Air 08/16/21 12:18 08/16/21 13:20 Temperature Temperature Source Pulse Rate 71 72 Respiratory Rate 16 Respiratory Effort Respiratory Pattern Blood Pressure 174/79 H 164/75 H Blood Pressure Mean 110 104 Pulse Ox 96 97 Oxygen Delivery Method Room Air Room Air Positive obese General Appearance ED: NAD; Negative for pallor Nutritional Appearance: obese HEENT Reports moist mucous membranes Negative for trauma Eyes PERRL and EOMs intact bilaterally Resp normal respiratory effort and clear to auscultation bilaterally Cardio regular rate and regular rhythm GI normal to inspection, nondistended, normoactive bowel sounds Neuro oriented x3, CN's II-XII intact bilaterally and no sensory deficits noted Sensorium / Orientation: alert Motor Exam: strength 5/5 throughout Psych mental status grossly normal Skin General Skin Exam: Negative for jaundice or pallor MDM MDM MDM Narrative Medical decision making narrative: Patient presenting with elevated blood pressure as well as headache and chest pain. Patient currently recovering from Covid 19 and doing PT at home when he noted his blood pressure was elevated only today. He is on losartan 100 mg daily, HCTZ 25 mg daily, propanolol for anxiety. His blood pressure is still elevated on arrival at 202/108. Patient was given hydralazine and his blood pressure did improve. Given his symptoms I did obtain a CT of the brain which is negative. For his chest pain I did check lab work and his CBC and BMP are unremarkable. Troponin is 8 both times. Age- adjusted D-dimer is negative. EKG on my interpretation shows a sinus rhythm with first-degree AV block at a rate of 65 bpm without significant interval change from 27 July 2020. Chest x-ray on my interpretation shows no acute cardiopulmonary process and the radiologist does agree. Given his blood pressure is improved and his work-up is ultimately negative I did speak with Dr. Camacho who is on-call for Dr. Adams. She recommended that he double his dose of HCTZ for 2 days and then call the office on Tuesday with the results of his blood pressure diary. This was discussed with him and his at length. They understand that if there are any new or worsening symptoms they can return to the ED. Patient will be discharged home in stable condition. Impression: 1. Hypertension established?[id number] 2. Chest pain noncardiac 3. Headache Lab Data Attestation: I reviewed the patient's lab results. Labs: Laboratory Results - last 24 hr 08/16/21 08/16/21 08/16/21 11:20 11:20 11:20 WBC 7.7 RBC 5.24 Hgb 15.0 Hct 44.8 MCV 85.5 MCH 28.6 MCHC 33.5 RDW Std Deviation 42.5 RDW Coeff of Jennifer 13.7 Plt Count 253 MPV 9.2 Immature Gran % (Auto) 0.800 Neut % (Auto) 74.8 H Lymph % (Auto) 14.5 L Benton % (Auto) 7.7 Eos % (Auto) 1.8 Baso % (Auto) 0.4 Absolute Neuts (auto) 5.8 Absolute Lymphs (auto) 1.12 Nucleated RBC % 0 D-Dimer Quant (PE/DVT) 0.64 H* Sodium 138 Potassium 3.9 Chloride 104 Carbon Dioxide 29.0 Anion Gap 5 BUN 26 H Creatinine 1.05 Estim Creat Clear Calc 62.75 Est GFR (MDRD) Af Amer 88 Est GFR (MDRD) Non-Af 73 BUN/Creatinine Ratio 24.8 H Glucose 181 H Calcium 9.6 Troponin I High Sens 8 08/16/21 13:20 WBC RBC Hgb Hct MCV MCH MCHC RDW Std Deviation RDW Coeff of Jennifer Plt Count MPV Immature Gran % (Auto) Neut % (Auto) Lymph % (Auto) Benton % (Auto) Eos % (Auto) Baso % (Auto) Absolute Neuts (auto) Absolute Lymphs (auto) Nucleated RBC % D-Dimer Quant (PE/DVT) Sodium Potassium Chloride Carbon Dioxide Anion Gap BUN Creatinine Estim Creat Clear Calc Est GFR (MDRD) Af Amer Est GFR (MDRD) Non-Af BUN/Creatinine Ratio Glucose Calcium Troponin I High Sens 8 Radiography Diagnostic Testing: Clinical Impression(s) from Imaging Studies Brain CT 08/16/21 11:27 IMPRESSION: Chronic involutional changes of the brain. Small vessel ischemia. Electronically Signed: Janeth Dhaliwal MD at 13:17 EDT Tel , Service support , Chest X-Ray 08/16/21 12:02 IMPRESSION: No evidence of acute cardiopulmonary process with similar parenchymal findings from previous. Electronically Signed: Tr Gee DO at 12:15 EDT , Service support , Discharge Plan Triage Chief Complaint: General Illness ED Provider: Sandip Ortiz Dx/Rx/DC Orders Prescriptions: No Action atorvastatin 10 mg tablet 20 mg PO DAILY RF: 0 losartan 100 mg tablet 100 mg PO DAILY RF: 0 hydrochlorothiazide 25 mg tablet 25 mg PO DAILY RF: 0 aspirin 81 mg tablet,delayed release (DR/EC) 81 mg PO DAILY RF: 0 sulfamethoxazole-trimethoprim 1 EACH tablet 1 ea PO BID RF: 0 ropinirole 0.25 MG tablet 0.5 mg PO QHS RF: 0 montelukast 10 MG tablet 10 mg PO DAILY RF: 0 semaglutide 0.25 MG/0.2 ML pen injector 0.25 mg SQ QWEEK RF: 0 Primary Care Provider: Ramiro Adams
[2021-08-16 11:36] LABS: Absolute Lymphocyte Count 1.12 X10^3/uL (0.83-4.51); Absolute Neutrophil Count 5.8 X10^3/uL (2.0-7.7); Basophil# 0.03 X10^3/uL; Basophil% 0.4 % (0-1); Eosinophil# 0.14 X10^3/uL; Eosinophils% 1.8 % (0-5); Hematocrit 44.8 % (40-54); Lymphocyte # 1.12 X10^3/ul (0.83-4.51); Lymphocyte % 14.5 % (19-41); Mean Corp Hgb Conc 33.5 g/dL (32-36); Mean Corpuscular Hgb 28.6 pg (27.0-32.0); Mean Corpuscular Volume 85.5 fL (80-94); Mean Platelet Vol. 9.2 fl (6.2-12.0); Monocyte# 0.59 X10^3/uL; Monocyte% 7.7 % (0-10); NRBC Flagged by Analyzer 0 % (0-5); Neutrophil # 5.76 X10^3/uL (2.7-7.7); Neutrophil % 74.8 % (47-70); Platelet Count 253 K/mm3 (150-450); RBC Distribution Width CV 13.7 % (11.6-14.6); RBC Distribution Width SD 42.5 fl (35.1-43.9); Red Blood Count 5.24 M/mm3 (4.6-6.2); White Blood Count 7.7 K/mm3 (4.4-11.0)
[2021-08-16] MEDS: hydrALAZINE 20 MG/ML Vial 10 MG IV (11:47)
[2021-08-16] MEDS: DiphenhydrAMINE 50 MG/ML Syringe 25 MG IV (11:47)
[2021-08-16] MEDS: Metoclopramide 10 MG/2 ML Vial IV (11:47)
[2021-08-16 11:50] LABS: D-Dimer Quantitative (DVT/PE) 0.64 FEU/ug/m (0.27-0.49)
--- NOTE | 2021-08-16 11:50 | ED.RN ---
ddimer 0.64 dr valdez aware
[2021-08-16 11:52] LABS: Anion Gap 5 (5-15); BUN 26 mg/dL (7-18); BUN/Creat Ratio 24.8 RATIO (10-20); Calcium,Total 9.6 mg/dL (8.5-10.1); Chloride 104 mmol/L (98-107); Creatinine, Serum 1.05 mg/dL (0.70-1.30); EST Glomerular Filtration Rate 73 mL/min (>60); Est Glom Filt Rate - Afr Amer 88 mL/min (>60); Estimated Creatinine Clearance 62.75 ml/min; Glucose 181 mg/dL (74-106); Potassium 3.9 mmol/L (3.5-5.1); Sodium Level 138 mmol/L (136-145); Troponin-I HS 8 pg/mL (3.0-78.0)
--- NOTE | 2021-08-16 12:02 | RAD_ITS ---
STUDY: X-RAY CHEST REASON FOR EXAM: Male, 76 years old. chest pain TECHNIQUE: Single AP portable view of the chest. COMPARISON: 07/27/2020 FINDINGS: The lungs are clear and expanded. There is no demonstrated pleural abnormality. Normal size heart. Normal mediastinum and edson. Normal visualized pulmonary arteries. Normal visualized aortic arch and descending thoracic aorta. Normal visualized thoracic spine. Normal visualized ribs, clavicles, and shoulders. There is no demonstrated abnormality of the visualized soft tissue structures of the upper abdomen. RAD/Chest 1 View (Portable) IMPRESSION: No evidence of acute cardiopulmonary process with similar parenchymal findings from previous. Electronically Signed: Tr Gee DO at 12:15 EDT , Service support ,
[2021-08-16 12:18] VITALS: BP 174/79; PULSE 71; O2SAT 96
[2021-08-16 13:20] VITALS: BP 164/75; PULSE 72; RESP 16; O2SAT 97
[2021-08-16 13:45] LABS: Troponin-I HS 8 pg/mL (3.0-78.0)
[2021-08-16 15:00] VITALS: BP 186/88; PULSE 74; RESP 16; O2SAT 97
[2021-08-16 15:57] VITALS: BP 161/76; PULSE 76; RESP 16
== END 2021-08-16 15:58 | disposition home or self-care (01) ==
PROVIDERS: Emergency Provider Student in an Organized Health Care Education/Training Program; PCP Family Medicine
DX: R07.89 Other chest pain (principal); R51.9 Headache, unspecified; I10 Essential (primary) hypertension; F41.9 Anxiety disorder, unspecified; E78.5 Hyperlipidemia, unspecified; E66.9 Obesity, unspecified; Z79.899 Other long term (current) drug therapy
CPT/HCPCS: 36415; 70450; 71045; 80048; 84484; 85025; 85379; 93005; 96374; 96375; 99283; A4216